=== PATIENT | male | born 1970 | race Caucasian/White ===

== ENCOUNTER 2017-06-01 16:00 | Inpatient (IN) | payer OTHER ==
[~2017-06-01] VITALS: Ht 182.9 cm; Wt 111.3 kg
[~2017-06-01 16:00] MED LIST: PERCOCET 5/31 TABLET PO
[2017-06-01 16:44] LABS: HEMATOCRIT 46.8 % (38.0-50.0); MCH 33.9 PG (29.0-34.0); MCHC 35.5 G/DL (30.0-36.0); MCV 95.7 FL (86-99); MEAN PLAT.VOLUME 11.2 uM^3 (9.0-12.4); PLATELET COUNT 186 K/uL (156-360); RBC DIS.WIDTH-CV 11.9 % (11.8-14.6); RBC DIS.WIDTH-SD 41.9 % (39-53); RED BLOOD COUNT 4.89 M/uL (4.00-5.50)
[2017-06-01 17:01] LABS: CHLORIDE 104 mEq/L (99-109); SODIUM 140 mEq/L (136-147)
[2017-06-01 17:02] LABS: AMYLASE 91 IU/L (1-118)
[2017-06-01 17:03] LABS: GLUCOSE 133 mg/dL (70-99)
[2017-06-01 17:05] LABS: ANION GAP 14 MEQ/L (2-14)
[2017-06-01 17:07] LABS: ALKALINE PHOSPHATASE 85 IU/L (3-129); GFR ESTIMATE (CALCULATED) > 59 mL/min/
[2017-06-01 17:08] LABS: UREA NITROGEN (BUN) 14 mg/dL (9-23)
[2017-06-01 17:11] LABS: LIPASE 382 U/L (1.0-51.0)
[2017-06-01 17:35] LABS: TROP-I INTERPRETATION NEGATIVE; TROPONIN-I < 0.01 ng/mL (0.0-0.30)
[2017-06-01] MEDS ORDERED: TERBINAFINE HC250 MG PO (19:23)
[2017-06-01 20:35] LABS: ADD MIUA? YES; BILIRUBIN NEGATIVE; BLOOD NEGATIVE; COLOR YELLOW ((YELLOW)); GLUCOSE (STRIP) NEGATIVE; KETONES NEGATIVE; LEUKOCYTES NEGATIVE; NITRITE NEGATIVE; PROTEIN (STRIP) 30; UROBILINOGEN 0.2 MG/DL (0.2-1.0)
[2017-06-01 20:57] LABS: BACTERIA NONE SEEN /HPF; EPITHELIAL CELLS NONE SEEN /HPF; HYALINE CASTS 0-5 /LPF; MUCUS TRACE /LPF; RED BLOOD CELLS 0-5 /HPF (0-5); UCUL ADDED? NO; WHITE BLOOD CELLS 0-5 /HPF (0-5)
[2017-06-01 21:03] VITALS: BP 172/90
[2017-06-02 00:08] VITALS: BP 165/87
[2017-06-02 06:14] LABS: BASOPHIL COUNT 0.1 K/uL (0-0.1); EOSINOPHIL (%) 0.7 % (0-5); EOSINOPHIL COUNT 0.1 K/uL (0-0.3); HEMATOCRIT 44.1 % (38.0-50.0); IMMATURE GRANULOCYTE (%) 0.4 % (0.0-0.7); INSTRUMENT ABS NEUTROPHIL CT 6.8 K/uL; LYMPHOCYTE COUNT 2.5 K/uL (1.0-2.8); MCH 34.1 PG (29.0-34.0); MCHC 34.7 G/DL (30.0-36.0); MCV 98.2 FL (86-99); MEAN PLAT.VOLUME 10.8 uM^3 (9.0-12.4); MONOCYTE (%) 7.3 % (3-12); MONOCYTE COUNT 0.7 K/uL (0-0.8); NEUTROPHIL (%) 66.8 % (45-76); NEUTROPHIL COUNT 6.8 K/uL (1.8-6.4); PLATELET COUNT 162 K/uL (156-360); RBC DIS.WIDTH-CV 12.1 % (11.8-14.6); RED BLOOD COUNT 4.49 M/uL (4.00-5.50); WHITE BLOOD COUNT 10.1 K/uL (4.1-10.2)
[2017-06-02 06:46] LABS: ALKALINE PHOSPHATASE 67 IU/L (3-129); ANION GAP 6 MEQ/L (2-14); CHLORIDE 106 MEQ/L (99-109); GFR ESTIMATE (CALCULATED) > 59 mL/min/; GLUCOSE 107 mg/dL (70-99); LIPASE 399 U/L (1.0-51.0); POTASSIUM 4.2 MEQ/L (3.7-5.4); SAMPLE HEMOLYSIS CHECK 0; SAMPLE ICTERIC CHECK 0; SAMPLE LIPEMIA CHECK 0; SODIUM 139 MEQ/L (136-147); TRIGLYCERIDES 178 MG/DL (Normal: <150); UREA NITROGEN (BUN) 12 mg/dL (9-23)
[2017-06-02 06:58] VITALS: BP 138/69
[2017-06-02 15:19] VITALS: BP 161/84
[2017-06-02 23:53] VITALS: BP 138/69
[2017-06-02 23:56] VITALS: BP 157/95
[2017-06-03 06:59] LABS: BASOPHIL COUNT 0.1 K/uL (0-0.1); EOSINOPHIL COUNT 0.1 K/uL (0-0.3); HEMATOCRIT 40.7 % (38.0-50.0); IMMATURE GRANULOCYTE (%) 0.3 % (0.0-0.7); INSTRUMENT ABS NEUTROPHIL CT 7.5 K/uL; MCH 34.1 PG (29.0-34.0); MCHC 34.6 G/DL (30.0-36.0); MCV 98.3 FL (86-99); MEAN PLAT.VOLUME 11.4 uM^3 (9.0-12.4); MONOCYTE (%) 8.6 % (3-12); MONOCYTE COUNT 0.9 K/uL (0-0.8); NEUTROPHIL (%) 70.9 % (45-76); NEUTROPHIL COUNT 7.5 K/uL (1.8-6.4); PLATELET COUNT 135 K/uL (156-360); RBC DIS.WIDTH-CV 11.9 % (11.8-14.6); RBC DIS.WIDTH-SD 43.3 % (39-53); RED BLOOD COUNT 4.14 M/uL (4.00-5.50); WHITE BLOOD COUNT 10.5 K/uL (4.1-10.2)
[2017-06-03 07:32] LABS: ANION GAP 9 MEQ/L (2-14); CHLORIDE 103 MEQ/L (99-109); GFR ESTIMATE (CALCULATED) > 59 mL/min/; GLUCOSE 72 mg/dL (70-99); POTASSIUM 4.2 MEQ/L (3.7-5.4); SAMPLE HEMOLYSIS CHECK 0; SAMPLE ICTERIC CHECK 0; SAMPLE LIPEMIA CHECK 0; SODIUM 139 MEQ/L (136-147); UREA NITROGEN (BUN) 9 mg/dL (9-23)
[2017-06-03 07:53] VITALS: BP 153/91
== END 2017-06-03 14:31 | disposition home or self-care (01) | DRG 440 ==
LOC: EME 16:00 → 5SOUTH 19:30 → EDOF 19:30 → ENRESERV 19:39 → 5SOUTH 20:38
PROVIDERS: Hospitalist; Internal Medicine; Physician Assistant
DX: K85.20 Alcohol induced acute pancreatitis without necrosis or infection (principal); R74.0 Nonspecific elevation of levels of transaminase and lactic acid dehydrogenase [LDH]; K86.1 Other chronic pancreatitis; K76.0 Fatty (change of) liver, not elsewhere classified; Z83.3 Family history of diabetes mellitus; Z82.49 Family history of ischemic heart disease and other diseases of the circulatory system; Z68.33 Body mass index [BMI] 33.0-33.9, adult
CPT/HCPCS: 71020; 74177; 76705; 80048; 80053; 81003; 82150; 83690; 84478; 84484; 85025; 85027; 93005; 99281; 99285; J1650; J2270; J2405; J7030; S0028

== ENCOUNTER 2017-12-17 05:59 | Inpatient (IN) | payer OTHER ==
[~2017-12-17] VITALS: Ht 177.8 cm; Wt 113.2 kg
[~2017-12-17 05:59] MED LIST changes: +TERBINAFINE HC250 MG PO
[2017-12-17 06:51] LABS: HEMATOCRIT 46.6 % (38.0-50.0); HEMOGLOBIN 16.8 G/DL (12.5-16.6); MCH 35.1 PG (29.0-34.0); MCHC 36.1 G/DL (30.0-36.0); MCV 97.5 FL (86-99); PLATELET COUNT 206 K/uL (156-360); RBC DIS.WIDTH-CV 12.1 % (11.8-14.6); RBC DIS.WIDTH-SD 43.8 % (39-53); RED BLOOD COUNT 4.78 M/uL (4.00-5.50); WHITE BLOOD COUNT 7.9 K/uL (4.1-10.2)
[2017-12-17 07:22] LABS: TROP-I INTERPRETATION NEGATIVE; TROPONIN-I < 0.01 ng/mL (0.0-0.30)
[2017-12-17 08:29] LABS: ALBUMIN 4.2 G/DL (3.2-4.8); ALKALINE PHOSPHATASE 67 IU/L (3-129); ALT (GPT) 177 IU/L (3-49); AST (GOT) 76 IU/L (2-34); CHLORIDE 102 MEQ/L (99-109); CREATININE 0.9 MG/DL (0.6-1.3); DIRECT BILIRUBIN 0.4 mg/dL (0.0-0.3); GFR ESTIMATE (CALCULATED) > 59 mL/min/ (58.99-99999); GLUCOSE 129 mg/dL (70-99); LIPASE 1029 U/L (1.0-51.0); POTASSIUM 4.5 MEQ/L (3.7-5.4); SODIUM 135 MEQ/L (136-147); TOTAL BILIRUBIN 1.3 MG/DL (0.0-1.0); TOTAL PROTEIN 7.1 G/DL (6.4-8.3); UREA NITROGEN (BUN) 15 mg/dL (9-23)
[2017-12-17] MEDS ORDERED: ADVIL,NUPRIN,M200 MG PO (09:06)
[2017-12-17] MEDS ORDERED: ALEVE LIQUID G220 MG PO (09:07)
[2017-12-17 09:54] LABS: LACTATE DEHYDROGENASE 182 IU/L (20-246)
[2017-12-17 10:50] VITALS: BP 178/88
[2017-12-17 15:06] VITALS: BP 166/90
[2017-12-17 20:39] VITALS: BP 174/100
[2017-12-17 23:30] VITALS: BP 164/92
[2017-12-18 04:18] VITALS: BP 177/104
[2017-12-18 06:28] LABS: HEMATOCRIT 43.9 % (38.0-50.0); MCH 33.7 PG (29.0-34.0); MCHC 33.7 G/DL (30.0-36.0); PLATELET COUNT 192 K/uL (156-360); RBC DIS.WIDTH-CV 12.3 % (11.8-14.6); RBC DIS.WIDTH-SD 46.4 % (39-53); RED BLOOD COUNT 4.39 M/uL (4.00-5.50)
[2017-12-18 06:29] LABS: HEMOGLOBIN 14.8 G/DL (12.5-16.6)
[2017-12-18 06:37] LABS: ALBUMIN 3.9 G/DL (3.2-4.8); ALKALINE PHOSPHATASE 58 IU/L (3-129); ALT (GPT) 122 IU/L (3-49); AST (GOT) 47 IU/L (2-34); CHLORIDE 102 MEQ/L (99-109); CREATININE 0.8 MG/DL (0.6-1.3); GFR ESTIMATE (CALCULATED) > 59 mL/min/ (58.99-99999); POTASSIUM 4.2 MEQ/L (3.7-5.4); SODIUM 135 MEQ/L (136-147); TOTAL BILIRUBIN 1.5 MG/DL (0.0-1.0); TOTAL PROTEIN 6.4 G/DL (6.4-8.3); UREA NITROGEN (BUN) 15 mg/dL (9-23)
[2017-12-18 06:39] LABS: GLUCOSE 88 mg/dL (70-99)
[2017-12-18 06:40] VITALS: BP 156/86
[2017-12-18 09:40] LABS: LIPASE 1065 U/L (1.0-51.0)
[2017-12-18 10:50] VITALS: BP 161/95
[2017-12-18 15:30] VITALS: BP 156/91
[2017-12-18 22:21] VITALS: BP 160/90
[2017-12-19 00:32] VITALS: BP 166/91
[2017-12-19 03:50] VITALS: BP 156/84
[2017-12-19 06:14] LABS: BASOPHIL (%) 0.5 % (0-1); EOSINOPHIL (%) 3.3 % (0-5); EOSINOPHIL COUNT 0.3 K/uL (0-0.3); HEMATOCRIT 39.3 % (38.0-50.0); HEMOGLOBIN 13.8 G/DL (12.5-16.6); IMMATURE GRANULOCYTE (%) 0.3 % (0.0-0.7); LYMPHOCYTE (%) 22.8 % (15-42); LYMPHOCYTE COUNT 1.8 K/uL (1.0-2.8); MCH 34.6 PG (29.0-34.0); MCHC 35.1 G/DL (30.0-36.0); MCV 98.5 FL (86-99); MONOCYTE (%) 9.2 % (3-12); MONOCYTE COUNT 0.7 K/uL (0-0.8); NEUTROPHIL (%) 63.9 % (45-76); NEUTROPHIL COUNT 5.1 K/uL (1.8-6.4); PLATELET COUNT 169 K/uL (156-360); RBC DIS.WIDTH-SD 43.8 % (39-53); RED BLOOD COUNT 3.99 M/uL (4.00-5.50); WHITE BLOOD COUNT 7.9 K/uL (4.1-10.2)
[2017-12-19 06:37] LABS: CHLORIDE 103 MEQ/L (99-109); CREATININE 0.7 MG/DL (0.6-1.3); GFR ESTIMATE (CALCULATED) > 59 mL/min/ (58.99-99999); GLUCOSE 77 mg/dL (70-99); SODIUM 138 MEQ/L (136-147); UREA NITROGEN (BUN) 12 mg/dL (9-23)
[2017-12-19 06:53] LABS: LIPASE 226 U/L (1.0-51.0)
[2017-12-19 07:33] VITALS: BP 157/82
[2017-12-19 12:12] VITALS: BP 164/93
[2017-12-19 15:37] VITALS: BP 161/92
[2017-12-19 21:14] VITALS: BP 163/93
[2017-12-20 00:17] VITALS: BP 165/84
[2017-12-20 07:30] VITALS: BP 140/88
[2017-12-20] MEDS ORDERED: VITALEE TABLET0.4 MG PO (11:10)
[2017-12-20] MEDS ORDERED: TRAMADOL HCL50 MG PO (11:11)
== END 2017-12-20 11:50 | disposition home or self-care (01) | DRG 440 ==
LOC: EME 05:59 → EDOF 08:50 → 5EAST 08:50 → ENRESERV 08:52 → 5EAST 10:41
PROVIDERS: Emergency Medicine; Physician Assistant Medical; Student in an Organized Health Care Education/Training Program
DX: K85.20 Alcohol induced acute pancreatitis without necrosis or infection (principal); E66.9 Obesity, unspecified; Z68.35 Body mass index [BMI] 35.0-35.9, adult; F10.10 Alcohol abuse, uncomplicated; I10 Essential (primary) hypertension
CPT/HCPCS: 71046; 76705; 80048; 80053; 80076; 83615; 83690; 84484; 85025; 85027; 93005; 99281; 99285; J0360; J1170; J1650; J1885; J2405; J3010; J7030; J7120; S0028